=== PATIENT | male | born 1985 | race Caucasian/White ===

== ENCOUNTER 2018-08-21 21:31 | Emergency (ER) | payer SELFPAY ==
[2018-08-21 21:32] VITALS: BP 139/88; PULSE 81; RESP 16; TEMP 36.8; O2SAT 100; BMI 26.9
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
[2018-08-21] MEDS: Naproxen 500 MG Tablet PO (21:49)
[2018-08-21 22:05] VITALS: RESP 18
== END 2018-08-21 22:05 | disposition home or self-care (01) ==
LOC: ED 21:57
PROVIDERS: Emergency Provider Emergency Medicine
DX: S16.1XXA Strain of muscle, fascia and tendon at neck level, initial encounter (principal); V89.2XXA Person injured in unspecified motor-vehicle accident, traffic, initial encounter; Y93.9 Activity, unspecified; Y92.9 Unspecified place or not applicable
CPT/HCPCS: 99283